=== PATIENT | female | born 1950 | race Caucasian/White ===

== ENCOUNTER 2017-10-24 09:05 | Day surgery (SDC) | payer OTHER ==
[~2017-10-24] VITALS: Ht 162.6 cm; Wt 78.0 kg
[~2017-10-24 09:05] MED LIST: ACET325 PO; ATOR40TA PO; CIPR500 PO; CRANBERRY TABL1 EACH; CRANBERRY250 MG; DULO30 PO; Diclofenac Pota50 MG; EC-Naprosyn375 MG; FOLBIC RF TABL1 EACH; GABA100 PO; HYDACE5 PO; IBUP800 PO; NAPR500 PO; OMEP20ER PO; OXYC5; Prinivil10 MG PO; STOOL SOFTENER100 MG; SULTRIDS PO; TOLT4 PO; TURMERIC500 MG; Vitamin C100 M1
== END 2017-10-24 11:37 | disposition home or self-care (01) ==
LOC: ORSCSDS 09:05
PROVIDERS: Internal Medicine Gastroenterology
PROC: 0DJD8ZZ Inspection of Lower Intestinal Tract, Via Natural or Artificial Opening Endoscopic (ICD-10-PCS; principal; 2017-10-24 10:45)
DX: K62.5 Hemorrhage of anus and rectum (principal); K57.30 Diverticulosis of large intestine without perforation or abscess without bleeding; Z85.038 Personal history of other malignant neoplasm of large intestine; Z86.010 Personal history of colon polyps; Z87.891 Personal history of nicotine dependence; Z79.899 Other long term (current) drug therapy
CPT/HCPCS: J7120

== ENCOUNTER 2018-11-26 10:59 | Emergency (ER) | payer OTHER ==
[~2018-11-26] VITALS: Ht 157.5 cm; Wt 92.5 kg
[2018-11-26 12:11] LABS: BASOPHILS ABSOLUTE AUTO 0.04 K/mm3 (0.00-0.23); BASOPHILS PERCENT AUTO 0 % (0-2); EOSINOPHILS ABSOLUTE AUTO 0.01 K/mm3 (0.00-0.68); EOSINOPHILS PERCENT AUTO 0 % (0-6); Hematocrit 38.6 % (33.0-51.0); Hemoglobin 12.6 g/dL (11.5-16.0); IMMATURE GRAN ABSOLUTE AUTO 0.03 K/mm3 (0.00-0.10); IMMATURE GRAN PERCENT AUTO 0 % (0-1); LYMPHOCYTES ABSOLUTE AUTO 1.51 K/mm3 (0.84-5.20); LYMPHOCYTES PERCENT AUTO 15 % (21-46); MONOCYTES ABSOLUTE AUTO 0.53 K/mm3 (0.16-1.47); MONOCYTES PERCENT AUTO 5 % (4-13); Mean Corpuscular HGB 30.7 pg (26.0-34.0); Mean Corpuscular HGB Conc 32.6 g/dL (31.5-36.5); Mean Corpuscular Volume 94 fL (80-100); Mean Platelet Volume 11.1 fL (9.1-12.4); NEUTROPHILS ABSOLUTE AUTO 8.29 K/mm3 (1.96-9.15); NEUTROPHILS PERCENT AUTO 80 % (41-73); Platelet Count 206 K/mm3 (150-400); RDW Coefficient Variation 12.4 % (11.7-14.2); RDW Standard Deviation 42.9 fL (35.1-46.3); Red Blood Cell Count 4.11 M/mm3 (3.80-5.20); White Blood Cell Count 10.41 K/mm3 (4.00-11.30)
[2018-11-26 12:33] LABS: Alanine Aminotransfer (ALT/SGP 24 U/L (12-78); Albumin, Blood 3.6 g/dL (3.4-5.0); Albumin/Globulin Ratio 0.9 (0.8-1.8); Alk Phos 112 U/L (50-136); Anion Gap 7 mmol/L (6-16); Aspartate Aminotrans (AST/SGOT 12 U/L (12-37); Bilirubin, Total 0.5 mg/dL (0.1-1.0); Blood Urea Nitrogen 13 mg/dL (8-24); Bun/Creatinine Ratio 19.5 (12.0-20.0); CO2, Blood 28 mmol/L (21-32); Calcium, Blood 8.4 mg/dL (8.5-10.1); Chloride, Blood 109 mmol/L (98-108); Creatinine, Blood 0.67 mg/dL (0.40-1.00); Globulin, Blood 3.8 g/dL (2.2-4.0); Glomerular Filtration Rate >60 (60-); Glucose, Blood 112 mg/dL (70-99); Potassium, Blood 3.3 mmol/L (3.5-5.5); Sodium, Blood 144 mmol/L (136-145); Total Protein, Blood 7.4 g/dL (6.4-8.2)
[2018-11-26 14:28] LABS: Source, Urine Clean Catch
[2018-11-26 14:32] LABS: Bilirubin, Urine Neg (Neg); Blood, Urine 5+ (Neg); Glucose Qualitative, Urine Neg (Neg); Ketones, Urine 3+ (Neg); Leukocyte Esterase, Urine 1+ (Neg); Nitrite, Urine Neg (Neg); Protein, Urine 2+ (Neg); Specific Gravity, Urine 1.025 (1.003-1.022); Urobilinogen, Urine NORM (Normal)
[2018-11-26 14:39] LABS: Appearance, Urine Clear (Clear); Color, Urine Yellow (P-Yellow)
[2018-11-26 14:40] LABS: Red Blood Cells, Urine 25-50 /hpf (0-2)
[2018-11-26 14:41] LABS: Bacteria Few /hpf; Squamous Epithelial Cells Few /hpf (Few)
[2018-11-26] MEDS ORDERED: Cipro500 MG PO (16:11)
[2018-11-26] MEDS ORDERED: Flagyl500 MG PO (16:11)
== END 2018-11-26 16:30 | disposition home or self-care (01) ==
LOC: ER 10:59
PROVIDERS: Physician Assistant
DX: K52.9 Noninfective gastroenteritis and colitis, unspecified (principal); Z79.899 Other long term (current) drug therapy; Z87.891 Personal history of nicotine dependence; Z88.8 Allergy status to other drugs, medicaments and biological substances; Z85.038 Personal history of other malignant neoplasm of large intestine
CPT/HCPCS: 36415; 74177; 80053; 81001; 83690; 85025; 87086; 93005; 93010; 99284-25; Q9967

== ENCOUNTER 2018-11-29 12:53 | Day surgery (SDC) | payer OTHER ==
[~2018-11-29] VITALS: Ht 162.6 cm; Wt 69.0 kg
[~2018-11-29 12:53] MED LIST changes: +Cipro500 MG PO; +Flagyl500 MG PO
== END 2018-11-29 16:20 | disposition home or self-care (01) ==
LOC: ORSCSDS 12:53
PROVIDERS: Internal Medicine Gastroenterology
PROC: 0DBN8ZX Excision of Sigmoid Colon, Via Natural or Artificial Opening Endoscopic, Diagnostic (ICD-10-PCS; principal; 2018-11-29 15:15)
DX: K62.5 Hemorrhage of anus and rectum (principal); D12.5 Benign neoplasm of sigmoid colon; K52.9 Noninfective gastroenteritis and colitis, unspecified; Z85.038 Personal history of other malignant neoplasm of large intestine; K57.30 Diverticulosis of large intestine without perforation or abscess without bleeding; I10 Essential (primary) hypertension; Z15.09 Genetic susceptibility to other malignant neoplasm; Z87.891 Personal history of nicotine dependence; Z79.899 Other long term (current) drug therapy
CPT/HCPCS: 88305; J1980; J7120

== ENCOUNTER → 2019-05-22 | Outpatient (CLI) | payer OTHER | END | disposition home or self-care (01) | LOC: LAB SHORT 15:41 → PLD 15:41 | DX: C44.622 Squamous cell carcinoma of skin of right upper limb, including shoulder (principal) | CPT/HCPCS: 88305 ==

== ENCOUNTER → 2019-07-01 | Outpatient (CLI) | payer OTHER | END | disposition home or self-care (01) | LOC: PLD 08:17 → LAB SHORT 08:17 | DX: L90.5 Scar conditions and fibrosis of skin (principal) | CPT/HCPCS: 88305 ==

== ENCOUNTER → 2020-03-17 | Outpatient (CLI) | payer OTHER | END | disposition home or self-care (01) | LOC: LAB SHORT 07:57 → PLD 07:57 | DX: L57.0 Actinic keratosis (principal) | CPT/HCPCS: 88305 ==

== ENCOUNTER → 2020-06-03 | Outpatient (CLI) | payer OTHER | END | disposition home or self-care (01) | LOC: LAB SHORT 12:15 → PLD 12:15 | DX: D04.61 Carcinoma in situ of skin of right upper limb, including shoulder (principal) | CPT/HCPCS: 88305 ==

== ENCOUNTER 2020-06-23 07:39 | Day surgery (SDC) | payer OTHER ==
[~2020-06-23] VITALS: Ht 162.6 cm; Wt 69.7 kg
== END 2020-06-23 09:49 | disposition home or self-care (01) ==
LOC: ORSCSDS 07:39
PROVIDERS: Internal Medicine Gastroenterology
PROC: 0DBP8ZX Excision of Rectum, Via Natural or Artificial Opening Endoscopic, Diagnostic (ICD-10-PCS; principal; 2020-06-23 09:00)
PROC: 0DBL8ZX Excision of Transverse Colon, Via Natural or Artificial Opening Endoscopic, Diagnostic (ICD-10-PCS; principal; 2020-06-23 09:00)
PROC: 0DBM8ZX Excision of Descending Colon, Via Natural or Artificial Opening Endoscopic, Diagnostic (ICD-10-PCS; principal; 2020-06-23 09:00)
DX: Z85.038 Personal history of other malignant neoplasm of large intestine (principal); R10.11 Right upper quadrant pain; K57.30 Diverticulosis of large intestine without perforation or abscess without bleeding; Z80.0 Family history of malignant neoplasm of digestive organs; D12.3 Benign neoplasm of transverse colon; D12.4 Benign neoplasm of descending colon; D12.8 Benign neoplasm of rectum; K62.1 Rectal polyp; Z87.891 Personal history of nicotine dependence; I10 Essential (primary) hypertension; Z85.51 Personal history of malignant neoplasm of bladder; E78.5 Hyperlipidemia, unspecified; Z79.899 Other long term (current) drug therapy
CPT/HCPCS: 88305; J0461; J2405; J2704; J7120

== ENCOUNTER 2021-08-23 10:59 | Emergency (ER) | payer OTHER ==
[~2021-08-23] VITALS: Ht 162.6 cm; Wt 75.8 kg
[2021-08-23 11:44] LABS: BASOPHILS ABSOLUTE AUTO 0.09 K/mm3 (0.00-0.23); BASOPHILS PERCENT AUTO 1 % (0-2); EOSINOPHILS ABSOLUTE AUTO 0.37 K/mm3 (0.00-0.68); EOSINOPHILS PERCENT AUTO 4 % (0-6); Hematocrit 39.5 % (33.0-51.0); Hemoglobin 13.3 g/dL (11.5-16.0); IMMATURE GRAN ABSOLUTE AUTO 0.04 K/mm3 (0.00-0.10); IMMATURE GRAN PERCENT AUTO 0 % (0-1); LYMPHOCYTES ABSOLUTE AUTO 2.13 K/mm3 (0.84-5.20); LYMPHOCYTES PERCENT AUTO 22 % (21-46); MONOCYTES ABSOLUTE AUTO 0.73 K/mm3 (0.16-1.47); MONOCYTES PERCENT AUTO 8 % (4-13); Mean Corpuscular HGB Conc 33.7 g/dL (31.5-36.5); Mean Corpuscular Volume 89 fL (80-100); Mean Platelet Volume 10.4 fL (9.1-12.4); NEUTROPHILS ABSOLUTE AUTO 6.37 K/mm3 (1.96-9.15); NEUTROPHILS PERCENT AUTO 66 % (41-73); Platelet Count 214 K/mm3 (150-400); RDW Coefficient Variation 12.5 % (11.7-14.2); RDW Standard Deviation 41.3 fL (35.1-46.3); Red Blood Cell Count 4.43 M/mm3 (3.80-5.20); White Blood Cell Count 9.73 K/mm3 (4.00-11.30)
[2021-08-23 12:10] LABS: Alanine Aminotransfer (ALT/SGP 18 U/L (12-78); Albumin, Blood 3.4 g/dL (3.4-5.0); Albumin/Globulin Ratio 0.8 (0.8-1.8); Alk Phos 107 U/L (50-136); Anion Gap 7 mmol/L (6-16); Aspartate Aminotrans (AST/SGOT 14 U/L (12-37); Bilirubin, Total 0.4 mg/dL (0.1-1.0); Blood Urea Nitrogen 21 mg/dL (8-24); CO2, Blood 24 mmol/L (21-32); Calcium, Blood 9.5 mg/dL (8.5-10.1); Chloride, Blood 108 mmol/L (98-108); Globulin, Blood 4.4 g/dL (2.2-4.0); Glomerular Filtration Rate 55 (60-); Glucose, Blood 110 mg/dL (70-99); Potassium, Blood 4.1 mmol/L (3.5-5.5); Sodium, Blood 139 mmol/L (136-145); Total Protein, Blood 7.8 g/dL (6.4-8.2); Troponin I <0.015 ng/mL (0.000-0.040)
[2021-08-23] MEDS ORDERED: HYDACE10B PO (15:04)
[2021-08-23] MEDS ORDERED: HYDR1TAB94 PO (15:05)
== END 2021-08-23 15:13 | disposition home or self-care (01) ==
LOC: ER 10:59
PROVIDERS: Physician Assistant
DX: C34.12 Malignant neoplasm of upper lobe, left bronchus or lung (principal); C78.2 Secondary malignant neoplasm of pleura; I10 Essential (primary) hypertension; Z88.8 Allergy status to other drugs, medicaments and biological substances; Z79.899 Other long term (current) drug therapy
CPT/HCPCS: 36415; 71045; 71260; 80053; 84484; 85025; 93005; 93010; 99285-25; A9270; Q9967

== ENCOUNTER 2021-10-06 15:59 | Inpatient (IN) | payer OTHER ==
[~2021-10-06] VITALS: Ht 162.6 cm; Wt 78.6 kg
[~2021-10-06 15:59] MED LIST changes: +HYDACE10B PO; +HYDR1TAB94 PO
[2021-10-06 17:23] LABS: Hematocrit 30.3 % (33.0-51.0); Mean Corpuscular HGB 29.6 pg (26.0-34.0); Mean Corpuscular Volume 90 fL (80-100); Mean Platelet Volume 12.2 fL (9.1-12.4); RDW Coefficient Variation 12.6 % (11.7-14.2); RDW Standard Deviation 41.5 fL (35.1-46.3); Red Blood Cell Count 3.38 M/mm3 (3.80-5.20); White Blood Cell Count 3.25 K/mm3 (4.00-11.30)
[2021-10-06 17:27] LABS: Source, Urine Clean Catch
[2021-10-06 17:30] LABS: Appearance, Urine Clear (Clear); Bilirubin, Urine Neg (Neg); Blood, Urine 1+ (Neg); Glucose Qualitative, Urine Neg (Neg); Ketones, Urine Neg (Neg); Leukocyte Esterase, Urine Neg (Neg); Nitrite, Urine Neg (Neg); Protein, Urine Neg (Neg); Urobilinogen, Urine NORM (Normal)
[2021-10-06 17:34] LABS: Platelet Count 32 K/mm3 (150-400)
[2021-10-06 17:44] LABS: Albumin, Blood 2.4 g/dL (3.4-5.0); Albumin/Globulin Ratio 0.7 (0.8-1.8); Bilirubin, Total 0.3 mg/dL (0.1-1.0); Calcium, Blood 7.9 mg/dL (8.5-10.1); Creatinine, Blood 4.41 mg/dL (0.40-1.00); Globulin, Blood 3.3 g/dL (2.2-4.0); Potassium, Blood 3.8 mmol/L (3.5-5.5); Total Protein, Blood 5.7 g/dL (6.4-8.2)
[2021-10-06 17:49] LABS: Color, Urine Pale Yellow (P-Yellow)
[2021-10-06 17:55] LABS: Bacteria Few /hpf; Red Blood Cells, Urine 0-2 /hpf (0-2); Squamous Epithelial Cells Few /hpf (Few); White Blood Cells, Urine 0-2 /hpf (0-5)
[2021-10-06 18:06] LABS: BAND PERCENT MAN 2 % (0-8); BASOPHILS PERCENT MAN 0 % (0-2); EOSINOPHILS ABSOLUTE MAN 0.61 K/mm3 (0.00-0.68); EOSINOPHILS PERCENT MAN 19 % (0-6); LYMPHOCYTES ABSOLUTE MAN 1.52 K/mm3 (0.84-5.20); LYMPHOCYTES PERCENT MAN 47 % (21-46); MONOCYTES ABSOLUTE MAN 0.13 K/mm3 (0.16-1.47); MONOCYTES PERCENT MAN 4 % (4-13); NEUTROPHILS ABSOLUTE MAN 0.97 K/mm3 (1.96-9.15); SEG NEUTROPHILS PERCENT MAN 28 % (41-73); TOTAL CELLS COUNTED 100
[2021-10-06] MEDS ORDERED: NEURONTIN300 MG PO (21:01)
[2021-10-06] MEDS ORDERED: K-Dur20 MEQ PO (21:02)
[2021-10-06] MEDS ORDERED: LEVOFLOXACIN PO (21:02)
--- NOTE | 2021-10-07 05:04 | NUR ---
RECIEVED REPORT FROM DEMETRI WAGNER RN, AT 2105. PATIENT ARRIVED TO ROOM 305 AT 2119 AND TRANSFERED TO HOSPITAL BED WITH THE ASSIST OF ONE STAFF MEMBER. AMBULATION IS UNSTEADY. PATIENT IS WEAK AND HAS MUCH PAIN TO HER RIGHT KIDNEY; MEDICATED WITH FENTANYL ONCE WITH SHORT-LIVED EFFECTIVENESS. PATIENT WAS THEN MEDICATED WITH NORCO WHICH WAS MUCH MORE EFFECTIVE. SHE WAS ALSO PROVIDED WITH A K-PAD TO APPLY TO HER BACK. ADMISSION ASSESSMENT AND H&P COMPLETED WITH THE ASSIST OF THE PATIENT. PATIENT WAS UNSURE OF HER MEDICATIONS SO I SENT A REQUEST TO HER PHARMACY FOR A CURRENT MED REC; PENDING RESPONCE TO COMPLETE MED REC. PATIENT HAS BEEN PLEASANT AND COOPERATIVE WITH STAFF AND CARE PROVIDED AND IN NOW ASLEEP IN HER BED. CALL LIGHT WITHIN REACH.
[2021-10-07 05:14] LABS: Hematocrit 27.9 % (33.0-51.0); Hemoglobin 9.2 g/dL (11.5-16.0); Mean Corpuscular HGB 29.4 pg (26.0-34.0); Mean Corpuscular Volume 89 fL (80-100); Mean Platelet Volume 12.1 fL (9.1-12.4); RDW Coefficient Variation 12.6 % (11.7-14.2); RDW Standard Deviation 41.1 fL (35.1-46.3); Red Blood Cell Count 3.13 M/mm3 (3.80-5.20); White Blood Cell Count 3.84 K/mm3 (4.00-11.30)
[2021-10-07 05:42] LABS: Platelet Count 23 K/mm3 (150-400)
[2021-10-07 05:52] LABS: BAND PERCENT MAN 30 % (0-8); BASOPHILS ABSOLUTE MAN 0.03 K/mm3 (0.00-0.23); BASOPHILS PERCENT MAN 1 % (0-2); EOSINOPHILS PERCENT MAN 8 % (0-6); LYMPHOCYTES ABSOLUTE MAN 0.53 K/mm3 (0.84-5.20); LYMPHOCYTES PERCENT MAN 14 % (21-46); MONOCYTES ABSOLUTE MAN 0.34 K/mm3 (0.16-1.47); MONOCYTES PERCENT MAN 9 % (4-13); MYELOCYTE ABSOLUTE MAN 0.03 K/mm3 (0.00-0.00); MYELOCYTE PERCENT MAN 1 % (0-0); NEUTROPHILS ABSOLUTE MAN 2.57 K/mm3 (1.96-9.15); SEG NEUTROPHILS PERCENT MAN 37 % (41-73); TOTAL CELLS COUNTED 100
[2021-10-07 06:05] LABS: Bun/Creatinine Ratio 15.5 (12.0-20.0); Calcium, Blood 7.6 mg/dL (8.5-10.1); Creatinine, Blood 4.44 mg/dL (0.40-1.00); Potassium, Blood 4.1 mmol/L (3.5-5.5)
[2021-10-07 14:30] LABS: Bun/Creatinine Ratio 14.6 (12.0-20.0); Calcium, Blood 7.6 mg/dL (8.5-10.1); Creatinine, Blood 4.46 mg/dL (0.40-1.00); Potassium, Blood 4.1 mmol/L (3.5-5.5)
--- NOTE | 2021-10-07 19:08 | NUR ---
SHIFT SUMMARY PT HAS BEEN RESTING IN BED MOST OF THE SHIFT TODAY, SHE HAS BEEN HAVING SIGNIFICANT KIDNEY PAIN, BUT ONLY ASKED TO BE MEDICATED TOWARDS THE END OF THE SHIFT. THE PT HAD ONE EPISODE OF NAUSEA ND VOMITING THIS EVENING AND AFTERWARD COUGHED UP BLOODY MUCUS. IS AWARE AND MEDICATIONS WERE ORDERED. DAUGHTER WAS IN ROOM AND WILL BE COMING BY TOMORROW TO DISCUSS END OF LIFE WISHES SHOULD PT REQUIRE THEM. WILL CONTINUE TO MONITOR.
[2021-10-08 04:58] LABS: Hematocrit 27.2 % (33.0-51.0); Hemoglobin 9.3 g/dL (11.5-16.0); Mean Corpuscular HGB 29.9 pg (26.0-34.0); Mean Corpuscular HGB Conc 34.2 g/dL (31.5-36.5); Mean Corpuscular Volume 88 fL (80-100); Mean Platelet Volume 12.6 fL (9.1-12.4); RDW Coefficient Variation 13.1 % (11.7-14.2); RDW Standard Deviation 41.4 fL (35.1-46.3); Red Blood Cell Count 3.11 M/mm3 (3.80-5.20); White Blood Cell Count 12.33 K/mm3 (4.00-11.30)
[2021-10-08 05:12] LABS: Platelet Count 38 K/mm3 (150-400)
--- NOTE | 2021-10-08 05:23 | NUR ---
Critical lab: [id number] Dr. Wolff was infomred about a platelet count of 38.
--- NOTE | 2021-10-08 05:25 | NUR ---
Pt is A/Ox4. She is a SBA to the BSC; she does a stable pivot with little assistance. Tele: SR/77. She remained on RA, had no c/o of pain. She did have a critical lab of a platelet count of 38 - MD aware.
[2021-10-08 05:42] LABS: BAND PERCENT MAN 29 % (0-8); BASOPHILS PERCENT MAN 0 % (0-2); EOSINOPHILS ABSOLUTE MAN 0.12 K/mm3 (0.00-0.68); EOSINOPHILS PERCENT MAN 1 % (0-6); LYMPHOCYTES PERCENT MAN 9 % (21-46); MONOCYTES ABSOLUTE MAN 0.98 K/mm3 (0.16-1.47); MONOCYTES PERCENT MAN 8 % (4-13); MYELOCYTE ABSOLUTE MAN 0.24 K/mm3 (0.00-0.00); MYELOCYTE PERCENT MAN 2 % (0-0); NEUTROPHILS ABSOLUTE MAN 9.86 K/mm3 (1.96-9.15); SEG NEUTROPHILS PERCENT MAN 51 % (41-73); TOTAL CELLS COUNTED 100
[2021-10-08 05:45] LABS: Albumin, Blood 2.2 g/dL (3.4-5.0); Anion Gap 9 mmol/L (6-16); Blood Urea Nitrogen 62 mg/dL (8-24); Bun/Creatinine Ratio 13.4 (12.0-20.0); CO2, Blood 19 mmol/L (21-32); Calcium, Blood 7.5 mg/dL (8.5-10.1); Chloride, Blood 117 mmol/L (98-108); Creatinine, Blood 4.61 mg/dL (0.40-1.00); Glomerular Filtration Rate 9 (60-); Glucose, Blood 85 mg/dL (70-99); Phosphorus, Blood 2.6 mg/dL (2.5-4.9); Potassium, Blood 3.4 mmol/L (3.5-5.5); Sodium, Blood 145 mmol/L (136-145)
--- NOTE | 2021-10-08 17:13 | NUR ---
DISCHARGE PT WAS DISCHARGED HOME AT 1655 TAKEN HOME BY DAUGHTER. DISCHARGE TEACHING DONE TO BOTH DAUGHTER AND PT. ALL PAPERWORK TAKEN WITH PT.
--- NOTE | 2021-10-08 18:01 | NUR ---
review of pt needs with pt and daughter. will update coordinator at [facility] of her needs
== END 2021-10-08 17:00 | disposition home or self-care (01) | DRG 682 ==
LOC: ER 15:59 → ERHOLD 20:35 → MEDS 20:35
PROVIDERS: Internal Medicine Nephrology; Physician Assistant; Student in an Organized Health Care Education/Training Program; ADMIT Family Medicine
DX: N17.9 Acute kidney failure, unspecified (principal); D61.810 Antineoplastic chemotherapy induced pancytopenia; C34.90 Malignant neoplasm of unspecified part of unspecified bronchus or lung; E87.0 Hyperosmolality and hypernatremia; E87.2 Acidosis; N14.1 Nephropathy induced by other drugs, medicaments and biological substances; T45.1X5A Adverse effect of antineoplastic and immunosuppressive drugs, initial encounter; D69.59 Other secondary thrombocytopenia; Z85.038 Personal history of other malignant neoplasm of large intestine; Z85.51 Personal history of malignant neoplasm of bladder; E78.5 Hyperlipidemia, unspecified; Z90.710 Acquired absence of both cervix and uterus; Z98.890 Other specified postprocedural states; Z90.722 Acquired absence of ovaries, bilateral; Z90.5 Acquired absence of kidney; Z88.8 Allergy status to other drugs, medicaments and biological substances; Z79.899 Other long term (current) drug therapy; N18.9 Chronic kidney disease, unspecified; I12.9 Hypertensive chronic kidney disease with stage 1 through stage 4 chronic kidney disease, or unspecified chronic kidney disease; Z53.29 Procedure and treatment not carried out because of patient's decision for other reasons
CPT/HCPCS: 36415; 76770; 80048; 80053; 80069; 81001; 83735; 85025; 99285; A9270; J0881; J3010; J3475; J3480; J7030; J7040

== ENCOUNTER 2021-10-17 09:39 | Inpatient (IN) | payer OTHER ==
[~2021-10-17] VITALS: Ht 162.6 cm; Wt 72.2 kg
[~2021-10-17 09:39] MED LIST changes: +K-Dur20 MEQ PO; +LEVOFLOXACIN PO; +NEURONTIN300 MG PO
[2021-10-17 10:18] LABS: Source, Urine Catheter
[2021-10-17 10:21] LABS: BASOPHILS ABSOLUTE AUTO 0.05 K/mm3 (0.00-0.23); BASOPHILS PERCENT AUTO 1 % (0-2); EOSINOPHILS PERCENT AUTO 0 % (0-6); Hematocrit 32.1 % (33.0-51.0); Hemoglobin 10.2 g/dL (11.5-16.0); IMMATURE GRAN ABSOLUTE AUTO 0.39 K/mm3 (0.00-0.10); IMMATURE GRAN PERCENT AUTO 5 % (0-1); LYMPHOCYTES ABSOLUTE AUTO 1.01 K/mm3 (0.84-5.20); LYMPHOCYTES PERCENT AUTO 13 % (21-46); MONOCYTES ABSOLUTE AUTO 0.98 K/mm3 (0.16-1.47); MONOCYTES PERCENT AUTO 12 % (4-13); Mean Corpuscular HGB 29.2 pg (26.0-34.0); Mean Corpuscular HGB Conc 31.8 g/dL (31.5-36.5); Mean Corpuscular Volume 92 fL (80-100); Mean Platelet Volume 10.4 fL (9.1-12.4); NEUTROPHILS ABSOLUTE AUTO 5.61 K/mm3 (1.96-9.15); NEUTROPHILS PERCENT AUTO 70 % (41-73); Platelet Count 170 K/mm3 (150-400); RDW Coefficient Variation 14.8 % (11.7-14.2); RDW Standard Deviation 47.4 fL (35.1-46.3); Red Blood Cell Count 3.49 M/mm3 (3.80-5.20); White Blood Cell Count 8.04 K/mm3 (4.00-11.30)
[2021-10-17 10:33] LABS: Appearance, Urine Clear (Clear); Bilirubin, Urine Neg (Neg); Blood, Urine 2+ (Neg); Color, Urine Yellow (P-Yellow); Glucose Qualitative, Urine Neg (Neg); Ketones, Urine Neg (Neg); Leukocyte Esterase, Urine Neg (Neg); Nitrite, Urine Neg (Neg); Protein, Urine 1+ (Neg); Urobilinogen, Urine NORM (Normal)
[2021-10-17 10:44] LABS: Hyaline Casts 0-2 /lpf (0-2); Mucus Light (0-Heavy)
[2021-10-17 10:45] LABS: Amorphous Mod (0-Heavy); Bacteria Few /hpf; Red Blood Cells, Urine 0-2 /hpf (0-2); Squamous Epithelial Cells Rare /hpf (Few); White Blood Cells, Urine 0-2 /hpf (0-5)
[2021-10-17 10:50] LABS: Alanine Aminotransfer (ALT/SGP 21 U/L (12-78); Albumin, Blood 2.4 g/dL (3.4-5.0); Albumin/Globulin Ratio 0.6 (0.8-1.8); Alk Phos 66 U/L (50-136); Anion Gap 14 mmol/L (6-16); Aspartate Aminotrans (AST/SGOT 34 U/L (12-37); Bilirubin, Total 0.3 mg/dL (0.1-1.0); Blood Urea Nitrogen 51 mg/dL (8-24); CO2, Blood 18 mmol/L (21-32); Chloride, Blood 108 mmol/L (98-108); Creatinine, Blood 3.91 mg/dL (0.40-1.00); Globulin, Blood 3.9 g/dL (2.2-4.0); Glomerular Filtration Rate 11 (60-); Glucose, Blood 98 mg/dL (70-99); Sodium, Blood 140 mmol/L (136-145); Thyroid Stimulating Hormone 0.294 uIU/mL (0.360-4.800); Total Protein, Blood 6.3 g/dL (6.4-8.2); Troponin I <0.015 ng/mL (0.000-0.040)
[2021-10-17 11:02] LABS: Influenza A, PCR NEGATIVE (NEGATIVE); Influenza B, PCR NEGATIVE (NEGATIVE); Resp Syncytial Virus, PCR NEGATIVE (NEGATIVE)
[2021-10-17 11:13] LABS: SARS-Cov-2 (COVID-19) PCR, MMC POSITIVE (NEGATIVE)
--- NOTE | 2021-10-17 16:41 | NUR ---
Pt is A&O, withdrawn. BP is still soft, SBP 90s MAP>60. NS was d/c and D5W w/ 3 amps of bicarb was initiated per Dr. Alex orders. Bladder scan volume was >400, placed pt on bedpan to see if she is able to pee on her own, if not we may need to do catheter, but will try bedpan and possibly BSC if pt can tolerate prior to cath. Pt reported no pain on assessment. Pt is on RA at this time sating 92-96%. Mild use of abdominal and accessary mucles noted. RR 18-22. Mg was replaced in ED. Tele: SR 70s. Pt reports she has not had chemo since 09/27, no need for chemo preautions at this time.
--- NOTE | 2021-10-18 04:17 | NUR ---
PT RESTING IN BED, SLEEPS THROUGH NIGHT. A/OX4, EXPRESSING NEEDS. ROOM TEMPERATURE INCREASED, BLANKETS PROVIDED.
[2021-10-18 04:43] LABS: BASOPHILS ABSOLUTE AUTO 0.03 K/mm3 (0.00-0.23); BASOPHILS PERCENT AUTO 1 % (0-2); EOSINOPHILS PERCENT AUTO 0 % (0-6); Hematocrit 28.5 % (33.0-51.0); Hemoglobin 9.3 g/dL (11.5-16.0); IMMATURE GRAN ABSOLUTE AUTO 0.28 K/mm3 (0.00-0.10); IMMATURE GRAN PERCENT AUTO 5 % (0-1); LYMPHOCYTES ABSOLUTE AUTO 0.97 K/mm3 (0.84-5.20); LYMPHOCYTES PERCENT AUTO 16 % (21-46); MONOCYTES ABSOLUTE AUTO 0.68 K/mm3 (0.16-1.47); MONOCYTES PERCENT AUTO 11 % (4-13); Mean Corpuscular HGB 28.9 pg (26.0-34.0); Mean Corpuscular HGB Conc 32.6 g/dL (31.5-36.5); Mean Corpuscular Volume 89 fL (80-100); Mean Platelet Volume 10.3 fL (9.1-12.4); NEUTROPHILS ABSOLUTE AUTO 4.07 K/mm3 (1.96-9.15); NEUTROPHILS PERCENT AUTO 68 % (41-73); Platelet Count 168 K/mm3 (150-400); RDW Coefficient Variation 14.2 % (11.7-14.2); RDW Standard Deviation 44.7 fL (35.1-46.3); Red Blood Cell Count 3.22 M/mm3 (3.80-5.20); White Blood Cell Count 6.03 K/mm3 (4.00-11.30)
[2021-10-18 05:00] LABS: Albumin, Blood 2.2 g/dL (3.4-5.0); Anion Gap 7 mmol/L (6-16); Blood Urea Nitrogen 42 mg/dL (8-24); Bun/Creatinine Ratio 14.6 (12.0-20.0); CO2, Blood 27 mmol/L (21-32); Calcium, Blood 6.8 mg/dL (8.5-10.1); Chloride, Blood 105 mmol/L (98-108); Creatinine, Blood 2.88 mg/dL (0.40-1.00); Glomerular Filtration Rate 16 (60-); Glucose, Blood 127 mg/dL (70-99); Magnesium, Blood 1.2 mg/dL (1.6-2.4); Phosphorus, Blood 3.3 mg/dL (2.5-4.9); Potassium, Blood 3.8 mmol/L (3.5-5.5); Sodium, Blood 139 mmol/L (136-145)
--- NOTE | 2021-10-18 13:26 | NUR ---
Pt is A&O 3-4, forgetful at times. Pt is flat and withrawn, but pleasant with cares. BP soft this AM, notified and told to call if MAP <65. MAP improved with new fluids. NS started at 75ml/hr. Mg replaced 2G total. No fever today, but had one overnight and tylenol was given with good effect. Pt is on RA. COVID + precautions maintained. 2 PIVs flushing well. IV rocephin and PO zithromax started today per orders. Tele: SR 70s. Pt has been up to BSC to void and was incontinent at times. Transferred to medical floor at 1330 w/ tele, report was given to Brit on medical floor. Transferred by wheelchair.
--- NOTE | 2021-10-18 16:00 | NUR ---
Pt resting in bed with daughter Karolina at bedside. Pt denies pain at this time. Pt does report dyspnea with exertion. Listened as Pt's daughter Karolina reports Pt has shown significant decline since receiving her chemo therapy treatment. Karolina reports Pt did not tolerate treatment well. Her care needs have increased significantly. Karolina reports plan to talk with oncologist regarding concerns. She expresses concerns that Pt should not continue treatment. Pt reports undecided if she wants to continue treatment. Discussed the importance of speaking with Dr Reilly regarding concerns. Discussed considering hospice if Pt has reached a point of wanting to focus on comfort and quality of life. Educated on hospice philosophy and provided written information regarding hospice services. Pt and family express appreciation and report no other concerns at this time. Spoke with Primary RN Amanda and discussed case. Pt requires 1 to 2 person assist with transfers and is not able to tolerate ambulation. Pt also requires assistance with bathing and dressing. PO intake still poor. Palliative Care will remain available supportive and therapeutic visits.
--- NOTE | 2021-10-18 16:24 | NUR ---
Met with pt's daughter Bozena. She states she is unable to care for her mom intermediate project manager, and that her adult brother will also need placement, as he is developmentally delayed. I was able to gather necessary phone numbers from Ana in Care Managment and passed them along to Bozena with instructions for each. One for Medicaid, the other for securing assistance for her brother.
--- NOTE | 2021-10-18 17:01 | NUR ---
SHIFT SUMMARY PCU TRANSFER THIS AFTERNOON. PATIENT SETTLED INTO ROOM. DAUGHTER AT BEDSIDE. PALLIATIVE CARE REQUESTED BY DAUGHTER, PALLIATIVE CARE NURSE MET WITH PATIENT AND DAUGHTER. NAHOMI GIVEN X1. TWO ASSIST TO BEDSIDE COMMODE, PATIENT VERY WEAK.
--- NOTE | 2021-10-18 21:48 | NUR ---
HOSPITALIST NOTIFIED THAT PT IS BACK IN AFIB WITH RVR, HR 140s-150s. PT ASYMPTOMATIC. PT'S ADMITTING DX IS A-FIB WITH RVR, RECEIVED AN IV CARDIZEM BOLUS 20MG AND CONVERTED BACK TO SR BUT BECAME HYPOTENSIVE AND HAD TO RECEIVE IV FLUID BOLUS WITH IMPROVEMENT TO BP. CURRENTLY HAS IV NS AT 75ML/HR. NEW ORDERS RECEIVED.
--- NOTE | 2021-10-18 22:24 | NUR ---
CALL RECEIVED FROM JANUARY, HORSE TRADER. AFTER PT RECEIVED 15MG IV CARDIZEM BOLUS, PT HRDECREASED TO THE 120s, REMAINS IN AFIB. PT'S HR NOW BACK INTO THE 150s. CHARGE NURSE, DIANA Hart MADE AWARE AND WILL NOTIFY HOSPITALIST (SINCE I AM AT BEDSIDE IN PT'S ISOLATION ROOM). WILL ALSO DISCUSS POSSIBLE TRANSFER BACK TO PCU. PT ALSO MEDICATED WITH TYLENOL 650MG PO FOR TEMP 101. PT ON SUPPLEMENTAL O2 AT 2LPM. PT MOANING AND SIGHING BUT DENIES PAIN AND DISCOMFORT. WILL CONTINUE TO MONITOR.
--- NOTE | 2021-10-18 23:00 | NUR ---
PT STILL AFIB WITH RVR, HR 140s-160s. ORDERS RECEIVED FOR LOPRESSOR IV, ORDERS CARRIED OUT. I REMAIN AT BEDSIDE WITH PT AT THIS TIME FOR CLOSE MONITORING OF VITALS AND PT STATUS.
--- NOTE | 2021-10-18 23:42 | NUR ---
CALL RECEIVED FROM JANUARY, PUBLIC WORKS LABORER AT ABOUT 2330, TO REPORT THAT THE PT'S HR HAS IMPROVED FROM THE 140s TO THE 110s. PT REMAINS ASYMPTOMATIC. WILL CONTINUE TO MONITOR.
[2021-10-19 05:18] LABS: BASOPHILS ABSOLUTE AUTO 0.03 K/mm3 (0.00-0.23); BASOPHILS PERCENT AUTO 0 % (0-2); EOSINOPHILS PERCENT AUTO 0 % (0-6); Hematocrit 30.5 % (33.0-51.0); IMMATURE GRAN ABSOLUTE AUTO 0.27 K/mm3 (0.00-0.10); IMMATURE GRAN PERCENT AUTO 4 % (0-1); LYMPHOCYTES ABSOLUTE AUTO 1.05 K/mm3 (0.84-5.20); LYMPHOCYTES PERCENT AUTO 14 % (21-46); MONOCYTES ABSOLUTE AUTO 0.74 K/mm3 (0.16-1.47); MONOCYTES PERCENT AUTO 10 % (4-13); Mean Corpuscular HGB 29.4 pg (26.0-34.0); Mean Corpuscular HGB Conc 32.8 g/dL (31.5-36.5); Mean Corpuscular Volume 90 fL (80-100); Mean Platelet Volume 10.4 fL (9.1-12.4); NEUTROPHILS ABSOLUTE AUTO 5.21 K/mm3 (1.96-9.15); NEUTROPHILS PERCENT AUTO 71 % (41-73); Platelet Count 181 K/mm3 (150-400); RDW Coefficient Variation 14.3 % (11.7-14.2); RDW Standard Deviation 45.6 fL (35.1-46.3)
[2021-10-19 05:56] LABS: Albumin, Blood 2.2 g/dL (3.4-5.0); Anion Gap 7 mmol/L (6-16); Blood Urea Nitrogen 28 mg/dL (8-24); Bun/Creatinine Ratio 12.6 (12.0-20.0); CO2, Blood 26 mmol/L (21-32); Calcium, Blood 7.7 mg/dL (8.5-10.1); Chloride, Blood 109 mmol/L (98-108); Creatinine, Blood 2.22 mg/dL (0.40-1.00); Glomerular Filtration Rate 22 (60-); Glucose, Blood 102 mg/dL (70-99); Magnesium, Blood 1.8 mg/dL (1.6-2.4); Phosphorus, Blood 4.2 mg/dL (2.5-4.9); Potassium, Blood 3.9 mmol/L (3.5-5.5); Sodium, Blood 142 mmol/L (136-145)
--- NOTE | 2021-10-19 06:38 | NUR ---
SHIFT SUMMARY ASSUMED CARE AT 1900. PT AAOX3, WITH PERIODS OF FORGETFULNESS. NO COMPLAINTS VOICED. LAST NIGHT PT CONVERTED BACK TO AFIB WITH RVR AROUND 2119. HOSPITALIST WAS NOTIFIED, NEW ORDERS WERE RECEIVED AND CARRIED OUT. AT ABOUT 0038, PT CONVERTED BACK TO SR, HR IN THE 70S, VERIFIED WITH JANUARY, [employer]. CARDIAC TELEMETRY MONITORING CONTINUED, TELE BOX #[id number]. PT WITH INTERMITTENTLY PRODUCTIVE COUGH. REMAINS ON ENHANCED ISOLATION DUE TO COVID +. IV FLUID INFUSING ORDERED. CALL RECEIVED INFECTION CONTROL THIS MORNING REQUESTING THAT THE GI PCR PANEL BE DISCONTINUED BECAUSE THE STOOL SPECIMEN HAS NOT BEEN COLLECTED IN OVER 24 HOURS. PT DENIES HAVING ANY EPISODES OF LOOSE STOOL YESTERDAY. BED REMAINS IN LOW POSITION WITH THE CALL LIGHT WITHIN EASY REACH. BED ALARM ACTIVATED. THIS MORNING PT IS MUCH MORE ORIENTED AND VOCAL. WILL CONTINUE TO MONITOR.
--- NOTE | 2021-10-19 17:08 | NUR ---
SHIFT SUMMARY PT IS AAOX3-4, ABLE TO MAKE NEEDS KNOWN, PLEASANT AND COOPERATIVE TO CARE. PT CAN BE FORGETFUL AT TIMES. NO C/O PAIN OR ANY DISCOMFORT THIS SHIFT. DENIES CP, SOB, OR N&V. DENIES DYSURIA. BED AT LOWEST POSITION. CALL LIGHT WITHIN REACH.
--- NOTE | 2021-10-19 17:42 | NUR ---
Arranged for daughter and Lauren Russ to meet tomorrow at 1030am, as patient and daughter need Notary for POA.
[2021-10-20 04:51] LABS: BASOPHILS ABSOLUTE AUTO 0.02 K/mm3 (0.00-0.23); BASOPHILS PERCENT AUTO 0 % (0-2); EOSINOPHILS PERCENT AUTO 0 % (0-6); Hematocrit 30.1 % (33.0-51.0); Hemoglobin 9.7 g/dL (11.5-16.0); IMMATURE GRAN ABSOLUTE AUTO 0.11 K/mm3 (0.00-0.10); IMMATURE GRAN PERCENT AUTO 2 % (0-1); LYMPHOCYTES ABSOLUTE AUTO 1.16 K/mm3 (0.84-5.20); LYMPHOCYTES PERCENT AUTO 18 % (21-46); MONOCYTES ABSOLUTE AUTO 0.64 K/mm3 (0.16-1.47); MONOCYTES PERCENT AUTO 10 % (4-13); Mean Corpuscular HGB 29.1 pg (26.0-34.0); Mean Corpuscular HGB Conc 32.2 g/dL (31.5-36.5); Mean Corpuscular Volume 90 fL (80-100); Mean Platelet Volume 10.2 fL (9.1-12.4); NEUTROPHILS ABSOLUTE AUTO 4.57 K/mm3 (1.96-9.15); NEUTROPHILS PERCENT AUTO 70 % (41-73); Platelet Count 145 K/mm3 (150-400); RDW Coefficient Variation 14.3 % (11.7-14.2); RDW Standard Deviation 45.4 fL (35.1-46.3); Red Blood Cell Count 3.33 M/mm3 (3.80-5.20)
--- NOTE | 2021-10-20 05:23 | NUR ---
PATIENT HAS RESTED WELL OVERNIGHT. VERBALIZED NO QUESTIONS OR CONCERNS. ASSISTED THE PATIENT WITH USING THE BEDSIDE COMMODE. PATIETN AMBULATED WELL BUT IS WEAK. PATIENBT ALSO CONVERTED BACK TO AFIB WITH A JUCTIONAL RHYTHM HR IN THE 60'S THEN 100-120'S. PATIENT IS AYSMPTOMATIC.
[2021-10-20 06:31] LABS: Albumin, Blood 2.2 g/dL (3.4-5.0); Anion Gap 12 mmol/L (6-16); Blood Urea Nitrogen 20 mg/dL (8-24); Bun/Creatinine Ratio 11.6 (12.0-20.0); CO2, Blood 22 mmol/L (21-32); Calcium, Blood 7.5 mg/dL (8.5-10.1); Chloride, Blood 108 mmol/L (98-108); Creatinine, Blood 1.72 mg/dL (0.40-1.00); Glomerular Filtration Rate 29 (60-); Glucose, Blood 88 mg/dL (70-99); Magnesium, Blood 1.4 mg/dL (1.6-2.4); Phosphorus, Blood 2.9 mg/dL (2.5-4.9); Potassium, Blood 3.6 mmol/L (3.5-5.5); Sodium, Blood 142 mmol/L (136-145)
--- NOTE | 2021-10-20 08:00 | NUR ---
pt laying in bed awake a/ox3, pleasant and cooperative with care, follows commands well, denies pain or sob, states she's feeling ok, slept ok last night, lungs are clear in upper [place], a bit course in bases, resp even and unlabored at rest, does get dyspnic with activity, hrirr, tele in place running afib per monitor, see strip, no edema noted, ppp+2, cap refill <3sec, vs stable, afebrile, iv sites are clear and patent, infusing ns at 50mls/hr, btx4, abd flat soft nontender, voids without diff, skin c/w/d, maew, ramesh, call light in reach.
--- NOTE | 2021-10-20 09:15 | NUR ---
pt heart rate went up to 150s, pt up to bsc, gave metoprolol, she converted at 0915 to sr with pac's, pt doing ok, call light in reach.
--- NOTE | 2021-10-20 18:41 | NUR ---
Pt sleeps when left undisturbed, denies complaints is on r/a, no acute changes this shift. call light in reach.
[2021-10-21 05:02] LABS: BASOPHILS ABSOLUTE AUTO 0.02 K/mm3 (0.00-0.23); BASOPHILS PERCENT AUTO 1 % (0-2); EOSINOPHILS PERCENT AUTO 0 % (0-6); Hemoglobin 9.5 g/dL (11.5-16.0); IMMATURE GRAN ABSOLUTE AUTO 0.13 K/mm3 (0.00-0.10); IMMATURE GRAN PERCENT AUTO 3 % (0-1); LYMPHOCYTES ABSOLUTE AUTO 1.14 K/mm3 (0.84-5.20); LYMPHOCYTES PERCENT AUTO 28 % (21-46); MONOCYTES ABSOLUTE AUTO 0.67 K/mm3 (0.16-1.47); MONOCYTES PERCENT AUTO 17 % (4-13); Mean Corpuscular HGB 29.4 pg (26.0-34.0); Mean Corpuscular HGB Conc 32.8 g/dL (31.5-36.5); Mean Corpuscular Volume 90 fL (80-100); Mean Platelet Volume 10.4 fL (9.1-12.4); NEUTROPHILS ABSOLUTE AUTO 2.06 K/mm3 (1.96-9.15); NEUTROPHILS PERCENT AUTO 51 % (41-73); Platelet Count 134 K/mm3 (150-400); RDW Coefficient Variation 14.3 % (11.7-14.2); RDW Standard Deviation 45.3 fL (35.1-46.3); Red Blood Cell Count 3.23 M/mm3 (3.80-5.20); White Blood Cell Count 4.02 K/mm3 (4.00-11.30)
[2021-10-21 06:11] LABS: Albumin, Blood 2.1 g/dL (3.4-5.0); Anion Gap 10 mmol/L (6-16); Blood Urea Nitrogen 23 mg/dL (8-24); Bun/Creatinine Ratio 15.2 (12.0-20.0); CO2, Blood 24 mmol/L (21-32); Calcium, Blood 7.9 mg/dL (8.5-10.1); Chloride, Blood 109 mmol/L (98-108); Creatinine, Blood 1.51 mg/dL (0.40-1.00); Glomerular Filtration Rate 34 (60-); Glucose, Blood 84 mg/dL (70-99); Magnesium, Blood 1.7 mg/dL (1.6-2.4); Phosphorus, Blood 2.9 mg/dL (2.5-4.9); Potassium, Blood 3.3 mmol/L (3.5-5.5); Sodium, Blood 143 mmol/L (136-145)
--- NOTE | 2021-10-21 06:45 | NUR ---
SHIFT SUMMARY ASSUMED CARE AT 1900. PT REMAINS IN ENHANCED ISOLATION FOR COVID PNEUMONIA. ON O2 2LPM VIA NC, O2 SATS IN THE LOW 90s. NO COUGHING OR SOB NOTED. CARDIAC TELEMETRY MONITORING, BOX# [id number], SINUS RHYTHM, HR IN THE 60s. NO ACUTE EVENTS OVERNIGHT. IV FLUIDS INFUSING ORDERED. 0630 DOSE OF IV POTASSIUM NOT AVAILABLE DURING 0600 MED PASS AT 0635. REPORT GIVEN TO ONCOMING NURSE, DEEP AGUILAR TO FOLLOW UP ON IV POTASSIUM ADMINISTRATION. BED IS IN LOW POSITION WITH THE CALL LIGHT WITHIN EASY REACH WITH BED ALARM ACTIVATED.
[2021-10-21] MEDS ORDERED: ELIQUIS5 M2 PO (12:10)
[2021-10-21] MEDS ORDERED: AZIT250 PO (12:13)
[2021-10-21] MEDS ORDERED: METO25 PO (12:13)
[2021-10-21] MEDS ORDERED: VISBIOME 112.51 EACH PO (12:16)
[2021-10-21] MEDS ORDERED: CEPH500 PO (12:17)
--- NOTE | 2021-10-21 14:26 | NUR ---
SUMMARY/DISCHARGE PT DISCHARGED TO HOME WITH HOME HEALTH, PT CHOSE [facility], PT VERBALIZED UNDERSTANDING OF DISCHARGE INSTRUCTIONS REGARDING MEDS AND FOLLOW UP, PT TAKEN OUT VIA WHEELCHAIR
== END 2021-10-21 13:15 | disposition home health service (06) | DRG 682 ==
LOC: ER 09:39 → PCU 09:40 → ERHOLD 09:40 → PCU 15:20 → MEDS 10-18 13:28 → ENPENDDIS 10-21 11:51 → MEDS 10-21 13:15
PROVIDERS: Emergency Medicine; ADMIT Family Medicine
PROC: 8E0ZXY6 Isolation (ICD-10-PCS; principal; 2021-10-18)
DX: N17.8 Other acute kidney failure (principal); U07.1 COVID-19; J12.82 Pneumonia due to coronavirus disease 2019; C34.90 Malignant neoplasm of unspecified part of unspecified bronchus or lung; E87.2 Acidosis; K52.1 Toxic gastroenteritis and colitis; N18.4 Chronic kidney disease, stage 4 (severe); I48.0 Paroxysmal atrial fibrillation; E83.42 Hypomagnesemia; E87.6 Hypokalemia; I95.9 Hypotension, unspecified; N14.1 Nephropathy induced by other drugs, medicaments and biological substances; T45.1X5A Adverse effect of antineoplastic and immunosuppressive drugs, initial encounter; R94.6 Abnormal results of thyroid function studies; E86.9 Volume depletion, unspecified; E88.09 Other disorders of plasma-protein metabolism, not elsewhere classified; E21.3 Hyperparathyroidism, unspecified; I25.9 Chronic ischemic heart disease, unspecified; E78.5 Hyperlipidemia, unspecified; D63.1 Anemia in chronic kidney disease; D69.6 Thrombocytopenia, unspecified; Z28.21 Immunization not carried out because of patient refusal; K21.9 Gastro-esophageal reflux disease without esophagitis; I12.9 Hypertensive chronic kidney disease with stage 1 through stage 4 chronic kidney disease, or unspecified chronic kidney disease; Z85.038 Personal history of other malignant neoplasm of large intestine; Z90.49 Acquired absence of other specified parts of digestive tract; Z98.890 Other specified postprocedural states; Z90.5 Acquired absence of kidney; Z92.21 Personal history of antineoplastic chemotherapy; Z79.899 Other long term (current) drug therapy; Z88.8 Allergy status to other drugs, medicaments and biological substances; Z90.710 Acquired absence of both cervix and uterus; Z85.3 Personal history of malignant neoplasm of breast
CPT/HCPCS: 0241U; 36415; 51701; 71045; 76770; 80053; 80069; 81001; 83605; 83735; 83880; 84145; 84439; 84443; 84481; 84484; 85025; 87086; 93005; 93010; 93306; 94760; 96365; 96366; 96367; 96375; 96376; 97162; 97165; 97530; 97535; 99285-25; A9270; G0378; J0696; J0881; J2405; J3475; J3480; J7030; J7070

== ENCOUNTER → 2021-11-25 | Outpatient (CLI) | payer OTHER ==
[~2021-11-25] MED LIST changes: +AZIT250 PO; +CEPH500 PO; +ELIQUIS5 M2 PO; +METO25 PO; +VISBIOME 112.51 EACH PO
[2021-11-25 15:50] LABS: Creatinine Urine 61.6 mg/dL (27.00-270.00); Microalbumin, Urine Quant. 6.96 mg/L (0.000-20.000); Protein, Urine Quantitative 15.6 mg/dL (0.0-11.9)
== END ==
LOC: LAB SHORT 12:40
PROVIDERS: Internal Medicine Nephrology
DX: N18.4 Chronic kidney disease, stage 4 (severe) (principal); D63.1 Anemia in chronic kidney disease; N25.81 Secondary hyperparathyroidism of renal origin; E55.9 Vitamin D deficiency, unspecified; E78.00 Pure hypercholesterolemia, unspecified; R76.9 Abnormal immunological finding in serum, unspecified; R94.5 Abnormal results of liver function studies; R94.6 Abnormal results of thyroid function studies
CPT/HCPCS: 81050; 82043; 82570; 84156

== ENCOUNTER → 2022-02-17 | Outpatient (CLI) | payer OTHER ==
[~2022-02-17] MED LIST changes: +Acetaminophen650 M1 PO; +Atarax10 MG PO; +DECADRON4 M1 PO; +Ondansetron Odt8 MG MM
[2022-02-18 13:11] LABS: G. vaginalis (DNA Probe) Negative (NEGATIVE); T. vaginalis (DNA Probe) Negative (NEGATIVE)
[2022-02-18 13:12] LABS: Candida species (DNA Probe) Negative (NEGATIVE)
== END ==
LOC: LAB SHORT 11:42
PROVIDERS: Nurse Practitioner Family
DX: N89.8 Other specified noninflammatory disorders of vagina (principal)
CPT/HCPCS: 87480; 87510; 87660

== ENCOUNTER → 2022-06-16 | Outpatient (CLI) | payer OTHER ==
[2022-06-16 14:48] LABS: BASOPHILS ABSOLUTE AUTO 0.07 K/mm3 (0.00-0.23); BASOPHILS PERCENT AUTO 1 % (0-2); EOSINOPHILS ABSOLUTE AUTO 0.24 K/mm3 (0.00-0.68); EOSINOPHILS PERCENT AUTO 2 % (0-6); Hematocrit 38.4 % (33.0-51.0); Hemoglobin 12.7 g/dL (11.5-16.0); IMMATURE GRAN ABSOLUTE AUTO 0.06 K/mm3 (0.00-0.10); IMMATURE GRAN PERCENT AUTO 1 % (0-1); LYMPHOCYTES ABSOLUTE AUTO 2.07 K/mm3 (0.84-5.20); LYMPHOCYTES PERCENT AUTO 18 % (21-46); MONOCYTES ABSOLUTE AUTO 0.95 K/mm3 (0.16-1.47); MONOCYTES PERCENT AUTO 8 % (4-13); Mean Corpuscular HGB 30.2 pg (26.0-34.0); Mean Corpuscular HGB Conc 33.1 g/dL (31.5-36.5); Mean Corpuscular Volume 91 fL (80-100); Mean Platelet Volume 9.7 fL (9.1-12.4); NEUTROPHILS ABSOLUTE AUTO 8.16 K/mm3 (1.96-9.15); NEUTROPHILS PERCENT AUTO 71 % (41-73); Platelet Count 195 K/mm3 (150-400); RDW Coefficient Variation 14.1 % (11.7-14.2); RDW Standard Deviation 47.3 fL (35.1-46.3); White Blood Cell Count 11.55 K/mm3 (4.00-11.30)
[2022-06-16 17:22] LABS: Albumin, Blood 3.3 g/dL (3.4-5.0); Albumin/Globulin Ratio 0.8 (0.8-1.8); Bilirubin, Total 0.6 mg/dL (0.1-1.0); Bun/Creatinine Ratio 10.7 (12.0-20.0); Calcium, Blood 9.1 mg/dL (8.5-10.1); Creatinine, Blood 1.49 mg/dL (0.40-1.00); Globulin, Blood 4.4 g/dL (2.2-4.0); Potassium, Blood 3.8 mmol/L (3.5-5.5); Total Protein, Blood 7.7 g/dL (6.4-8.2)
== END | disposition home or self-care (01) ==
LOC: LAB 14:42 → LAB SHORT 14:42
PROVIDERS: Physician Assistant
DX: R06.00 Dyspnea, unspecified (principal)
CPT/HCPCS: 80053; 85025

== ENCOUNTER → 2023-08-22 | Outpatient (CLI) | payer OTHER ==
[2023-08-22 15:24] LABS: BASOPHILS ABSOLUTE AUTO 0.02 K/mm3 (0.00-0.23); BASOPHILS PERCENT AUTO 1 % (0-2); EOSINOPHILS PERCENT AUTO 0 % (0-6); Hematocrit 35.9 % (33.0-51.0); Hemoglobin 11.8 g/dL (11.5-16.0); IMMATURE GRAN ABSOLUTE AUTO 0.05 K/mm3 (0.00-0.10); IMMATURE GRAN PERCENT AUTO 1 % (0-1); LYMPHOCYTES ABSOLUTE AUTO 0.94 K/mm3 (0.84-5.20); LYMPHOCYTES PERCENT AUTO 27 % (21-46); MONOCYTES ABSOLUTE AUTO 0.62 K/mm3 (0.16-1.47); MONOCYTES PERCENT AUTO 18 % (4-13); Mean Corpuscular HGB Conc 32.9 g/dL (31.5-36.5); Mean Corpuscular Volume 91 fL (80-100); NEUTROPHILS ABSOLUTE AUTO 1.87 K/mm3 (1.96-9.15); NEUTROPHILS PERCENT AUTO 53 % (41-73); Platelet Count 99 K/mm3 (150-400); RDW Coefficient Variation 15.7 % (11.7-14.2); RDW Standard Deviation 52.6 fL (35.1-46.3); Red Blood Cell Count 3.93 M/mm3 (3.80-5.20)
[2023-08-22 15:28] LABS: Albumin, Blood 3.1 g/dL (3.4-5.0); Albumin/Globulin Ratio 0.8 (0.8-1.8); Bilirubin, Total 1.1 mg/dL (0.1-1.0); Calcium, Blood 8.6 mg/dL (8.5-10.1); Creatinine, Blood 1.27 mg/dL (0.40-1.00); Globulin, Blood 3.7 g/dL (2.2-4.0); Potassium, Blood 3.8 mmol/L (3.5-5.5); Total Protein, Blood 6.8 g/dL (6.4-8.2)
== END | disposition home or self-care (01) ==
LOC: LAB 14:30 → LAB SHORT 14:30
PROVIDERS: Nurse Practitioner
DX: C34.90 Malignant neoplasm of unspecified part of unspecified bronchus or lung (principal)
CPT/HCPCS: 80053; 85025